=== PATIENT | female | born 1980 | race Caucasian/White ===

== ENCOUNTER 2021-03-13 06:41 | Observation (INO) | payer BC, OTHER ==
[~2021-03-13] VITALS: Ht 152.4 cm; Wt 70.3 kg
[~2021-03-13 06:41] MED LIST: CLONIDINE HCL0.1 MG PO; IBU600 MG PO; LAMICTAL100 MG PO; NORCO 10-325 T1 EACH PO; OLANZAPINE2.5 MG PO; SUBOXONE 8 MG-1 EACH PO; WELLBUTRIN SR150 MG PO
[2021-03-13] MEDS ORDERED: ZYPREXA20 MG PO (07:16)
[2021-03-13] MEDS ORDERED: NEURONTIN800 MG PO (07:17)
[2021-03-13] MEDS ORDERED: VENLAFAXINE HC150 M1 PO (07:18)
[2021-03-13 07:22] LABS: RED BLOOD COUNT 4.74 M/UL (4.00-5.10); WHITE BLOOD COUNT 9.9 K/UL (4.5-11.0)
[2021-03-13 07:38] LABS: BUN/CREATININE RATIO 18 (0-10)
[2021-03-14 06:29] LABS: HEMOGLOBIN 12.8 gm/dl (12.3-15.3); RED BLOOD COUNT 4.35 M/UL (4.00-5.10); WHITE BLOOD COUNT 13.3 K/UL (4.5-11.0)
[2021-03-15 06:35] LABS: HEMOGLOBIN 12.6 gm/dl (12.3-15.3); RED BLOOD COUNT 4.42 M/UL (4.00-5.10)
[2021-03-15 06:36] LABS: WHITE BLOOD COUNT 9.4 K/UL (4.5-11.0)
[2021-03-15] MEDS ORDERED: HYDROCODON-ACE1 EAC2 PO (08:42)
== END 2021-03-15 17:28 | disposition home or self-care (01) ==
LOC: OR 06:41 → MED SURG 4 14:45 → OR 16:07 → MED SURG 4 03-15 17:28
PROVIDERS: ADMIT Orthopaedic Surgery
DX: S42.021K Displaced fracture of shaft of right clavicle, subsequent encounter for fracture with nonunion (principal); E11.69 Type 2 diabetes mellitus with other specified complication; M86.9 Osteomyelitis, unspecified; T84.218A Breakdown (mechanical) of internal fixation device of other bones, initial encounter; G40.909 Epilepsy, unspecified, not intractable, without status epilepticus; K21.9 Gastro-esophageal reflux disease without esophagitis; F17.210 Nicotine dependence, cigarettes, uncomplicated; F41.9 Anxiety disorder, unspecified; F32.9 Major depressive disorder, single episode, unspecified; Z79.899 Other long term (current) drug therapy; Z20.822 Contact with and (suspected) exposure to COVID-19; X58.XXXD Exposure to other specified factors, subsequent encounter
CPT/HCPCS: 36415; 80048; 82962; 85025; 87070; 87205; 96374; 96375; C1713; G0378; J0690; J0878; J1100; J1170; J1885; J2250; J2405; J2704; J3010; J3260; J3370; J7030; J7070; J7120; U0002

== ENCOUNTER → 2021-05-23 | Outpatient (CLI) | payer OTHER ==
[~2021-05-23] MED LIST changes: +HYDROCODON-ACE1 EAC2 PO; +NEURONTIN800 MG PO; +VENLAFAXINE HC150 M1 PO; +ZYPREXA20 MG PO
== END ==
LOC: OPSV 05-09 12:00
DX: L53.8 Other specified erythematous conditions (principal)
CPT/HCPCS: G0463